=== PATIENT | female | born 1995 | race American Indian/Alaskan Native ===

== ENCOUNTER 2019-05-28 21:46 | Emergency (ER) | payer OTHER ==
[2019-05-29] MEDS ORDERED: MORPHINE 2 MG/1 ML INJ IV ONE (00:59)
[2019-05-29] MEDS ORDERED: ACETAMINOPHEN 500 MG TAB PO ONE (01:00)
[2019-05-29 01:29] LABS: Basophils % (Auto) 0.9 % (0.0-1.8); Eosinophils # (Auto) 0.1 K/mm3 (0.0-0.4); Eosinophils % (Auto) 1.8 % (0.0-4.3); Hemoglobin 12.1 gm/dl (10.1-14.3); Lymphocytes # (Auto) 1.7 K/mm3 (1.2-5.4); Lymphocytes % (Auto) 42.1 % (13.4-35.0); Mean Corpuscular HGB Conc 35 % (30-34); Mean Corpuscular Volume 84 fl (79-97); Monocytes # (Auto) 0.4 K/mm3 (0.0-0.8); Platelet Count 248 K/mm3 (140-440); Red Blood Count 4.17 M/mm3 (3.65-5.03); Red Cell Distribution Width 12.4 % (13.2-15.2)
[2019-05-29 02:06] LABS: Alanine Aminotransferase 19 units/L (7-56); Albumin 4.6 g/dL (3.9-5); BUN/Creatinine Ratio 22; Blood Urea Nitrogen 13 mg/dL (7-17); Calcium 9.5 mg/dL (8.4-10.2); Hemolysis Index 2
--- NOTE | 2019-05-29 03:00 | Cat Scan Report ---
CT ABDOMEN AND PELVIS WITH CONTRAST HISTORY: RLQ abdominal pain. COMPARISON: None. TECHNIQUE: CT images of the abdomen and pelvis were obtained following administration of intravenous contrast. All CT scans at this location are performed using CT dose reduction for ALARA by means of automated exposure control. CONTRAST: 100 ml of intravenous contrast administered. FINDINGS: Lungs/bones: Lung bases are clear. No acute osseous abnormality identified. Abdomen/pelvis: There is mild periportal edema and hepatomegaly. The liver otherwise appears unremar kable except for a small area of fatty infiltration near the ligamentum. The spleen, pancreas, adrena ls, kidneys, and proximal GI tract appear unremarkable. Urinary bladder is distended with no wall thickening or mass identified. There is small amount of end ometrial fluid and multiple bilateral ovarian follicles. Trace pelvic free fluid is present which may be physiologic in a woman of this age. No acute colonic abnormality identified. The appendix is norm al IMPRESSION: 1. No acute abnormality identified 2. Endometrial fluid and bilateral ovarian follicles as well as small volume pelvic free fluid, likel y physiologic in a woman of this age. Signer Name: Kris Harris MD Signed: 05/29/2019 2:55 AM Workstation Name: [id number]
[2019-05-29 03:24] LABS: Bacteria,Urine 2+ /HPF (Negative); Bilirubin,Urine NEG (Negative); Blood,Urine SM (Negative); Color,Urine Yellow (Yellow); Mucus,Urine 3+ /HPF; Protein,Urine <15 mg/dL mg/dL (Negative)
--- NOTE | 2019-05-29 03:31 | Emergency Department Report ---
ED Abdominal Pain HPI - General Chief Complaint: Abdominal Pain Stated Complaint: IRRITATION ON LOWER LEFT GUT Source: patient Mode of arrival: Ambulatory Limitations: No Limitations - History of Present Illness Initial Comments: Patient is a nulliparous 24-year-old -Cypriot female with no past medical history who presents to the ED with complaint of acute onset persistent right lower quadrant abdominal pain that radiates to the suprapubic area with a headache for the last 1 week was in the last 12 hours. Patient denies fever, chills, nausea, vomiting, diarrhea, dysuria, urinary frequency and urgency, vaginal discharge, low back pain, chest pain, shortness of breath, vaginal bleeding or sore throat and palpitation, nasal and sinus congestion, heavy lifting or traumatic injury. MD Complaint: abdominal pain, other (headache) -: Gradual, week(s) (1) Location: RLQ, suprapubic Radiation: none Migration to: no migration Severity: moderate Severity scale (0 -10): 4 Quality: cramping, aching, sharp Consistency: intermittent Improves With: nothing Worsens With: movement Associated Symptoms: denies other symptoms. denies: nausea, vomiting, diarrhea, fever, chills, dysuria, hematemesis, hematochezia, melena, hematuria, anorexia, syncope, other - Related Data LMP Date: 04/18/19 Previous Rx's Medication Instructions Recorded Last Taken Type Butalb/Acetamin/Caff 50-325-40 1 tab PO Q6HR PRN #12 tab 05/29/19 Unknown Rx [Fioricet 50-325-40] Cyclobenzaprine [Flexeril] 10 mg PO Q8H PRN #12 tablet 05/29/19 Unknown Rx Naproxen [Naproxen DR] 375 mg PO Q12H PRN #20 tablet.dr 05/29/19 Unknown Rx Allergies Allergy/AdvReac Type Severity Reaction Status Date / Time No Known Allergies Allergy Verified 05/28/19 21:55 ED Review of Systems ROS: Stated complaint: IRRITATION ON LOWER LEFT GUT Other details as noted in HPI Constitutional: denies: chills, fever Eyes: denies: eye pain, eye discharge, vision change ENT: denies: ear pain, throat pain Respiratory: denies: cough, shortness of breath, wheezing Cardiovascular: denies: chest pain, palpitations Endocrine: no symptoms reported Gastrointestinal: abdominal pain. denies: nausea, diarrhea, hematochezia Genitourinary: denies: urgency, dysuria, discharge Musculoskeletal: denies: back pain, joint swelling, arthralgia Skin: denies: rash, lesions Neurological: denies: headache, weakness, paresthesias Psychiatric: denies: anxiety, depression Hematological/Lymphatic: denies: easy bleeding, easy bruising ED Past Medical Hx - Past Medical History Previous Medical History?: Yes Hx Asthma: Yes (as child) - Surgical History Past Surgical History?: No - Social History Smoking Status: Never Smoker Substance Use Type: None - Medications Home Medications: Home Medications Medication Instructions Recorded Confirmed Last Taken Type Butalb/Acetamin/Caff 50-325-40 1 tab PO Q6HR PRN #12 tab 05/29/19 Unknown Rx [Fioricet 50-325-40] Cyclobenzaprine [Flexeril] 10 mg PO Q8H PRN #12 tablet 05/29/19 Unknown Rx Naproxen [Naproxen DR] 375 mg PO Q12H PRN #20 tablet.dr 05/29/19 Unknown Rx ED Physical Exam - General Limitations: No Limitations General appearance: alert, in no apparent distress - Head Head exam: Present: atraumatic, normocephalic, normal inspection - Eye Eye exam: Present: normal appearance, PERRL, EOMI Pupils: Present: normal accommodation - ENT ENT exam: Present: normal exam, normal orophraynx, mucous membranes moist, TM's normal bilaterally, normal external ear exam - Neck Neck exam: Present: normal inspection, full ROM - Respiratory Respiratory exam: Present: normal lung sounds bilaterally. Absent: respiratory distress, wheezes, rales, rhonchi, chest wall tenderness, accessory muscle use, decreased breath sounds - Cardiovascular Cardiovascular Exam: Present: regular rate, normal rhythm, normal heart sounds. Absent: systolic murmur, diastolic murmur, rubs, gallop - GI/Abdominal GI/Abdominal exam: Present: soft, tenderness (Palpable mild RLQ tenderness), normal bowel sounds. Absent: guarding, rebound, hyperactive bowel sounds, organomegaly - Bi-manual exam: Present: other (pelvic exam deferred) - Extremities Exam Extremities exam: Present: normal inspection, full ROM, normal capillary refill - Back Exam Back exam: Present: normal inspection, full ROM. Absent: tenderness, CVA tenderness (L), muscle spasm, paraspinal tenderness, vertebral tenderness - Neurological Exam Neurological exam: Present: alert, oriented X3, CN II-XII intact, normal gait, reflexes normal - Psychiatric Psychiatric exam: Present: normal affect, normal mood - Skin Skin exam: Present: warm, dry, intact, normal color. Absent: rash ED Course Vital Signs 05/28/19 05/29/19 21:51 02:45 Temperature 98.8 F Pulse Rate 72 Respiratory 18 20 Rate Blood Pressure 133/89 O2 Sat by Pulse 100 Oximetry ED Medical Decision Making - Lab Data Result diagrams: 05/29/19 01:10 05/29/19 01:10 - Radiology Data Radiology results: report reviewed, image reviewed Findings [facility] [address] [place] [address] Cat Scan Report Signed Patient: LEIDY MARTINEZ MR#: [id number] : 1995 Acct:[id number] Age/Sex: 24 / F ADM Date: 05/28/19 Loc: ED Attending Dr: Ordering Physician: LASHON ROSARIO Date of Service: 05/29/19 Procedure(s): CT abdomen pelvis w con Accession Number(s): [id number] cc: LASHON ROSARIO CT ABDOMEN AND PELVIS WITH CONTRAST HISTORY: RLQ abdominal pain. COMPARISON: None. TECHNIQUE: CT images of the abdomen and pelvis were obtained following administration of intravenous contrast. All CT scans at this location are performed using CT dose reduction for ALARA by means of automated exposure control. CONTRAST: 100 ml of intravenous contrast administered. FINDINGS: Lungs/bones: Lung bases are clear. No acute osseous abnormality identified. Abdomen/pelvis: There is mild periportal edema and hepatomegaly. The liver otherwise appears unremarkable except for a small area of fatty infiltration near the ligamentum. The spleen, pancreas, adrenals, kidneys, and proximal GI tract appear unremarkable. Urinary bladder is distended with no wall thickening or mass identified. There is small amount of endometrial fluid and multiple bilateral ovarian follicles. Trace pelvic free fluid is present which may be physiologic in a woman of this age. No acute colonic abnormality id entified. The appendix is normal IMPRESSION: 1. No acute abnormality identified 2. Endometrial fluid and bilateral ovarian follicles as well as small volume pelvic free fluid, likely physiologic in a woman of this age. Signer Name: Kris Harris MD Signed: 05/29/2019 2:55 AM Workstation Name: [id number] Transcribed By: VIVIEN Dictated By: Kris Harris MD Electronically Authenticated By: Kris Harris MD Signed Date/Time: 05/29/19254 DD/ 1 TD/TT: - Medical Decision Making This is a 24-year-old nulliparous female who presented to the ED with complaint of acute onset persistent right lower quadrant abdominal pain, with headache for the last 1 week, worse in the last 12 hours. In the ED, patient is alert and oriented 3 and is in distress. Patient was treated for pain in the ED and lab test results were reviewed and are all unremarkable. Abdomen pelvis CT scan with contrast shows no acute abnormalities in the abdomen and pelvis areas. Patient was treated for pain in the ED and on reevaluation, patient's pain is well controlled with medications. Patient was discharged home on pain medications and advised follow-up with her primary care physician in 7-10 days for reevaluation or return to the ED immediately if symptoms get worse. - Differential Diagnosis UTI; Appendicitis; Ovarian cysts; Constipation; muscle strain; Critical care attestation.: If time is entered above; I have spent that time in minutes in the direct care of this critically ill patient, excluding procedure time. ED Disposition Clinical Impression: Abdominal pain Qualifiers: Abdominal location: lower abdomen, unspecified Qualified Code(s): R10.30 - Lower abdominal pain, unspecified Ovarian cyst Qualifiers: Laterality: right Qualified Code(s): N83.201 - Unspecified ovarian cyst, right side Tension type headache Qualifiers: Headache chronicity pattern: unspecified pattern Intractability: not intractable Qualified Code(s): G44.209 - Tension-type headache, unspecified, not intractable Disposition: DC-01 TO HOME OR SELFCARE Is pt being admited?: No Does the pt Need Aspirin: No Condition: Stable Instructions: Abdominal Pain (ED), Ovarian Cyst (ED), Acute Headache (ED) Additional Instructions: Take medication with food, drink plenty of fluids and follow-up with her primary care physician in 7-10 days for reevaluation. Return to the ED immediately if symptoms get worse. Prescriptions: Butalb/Acetamin/Caff 50-325-40 [Fioricet 50-325-40] 1 tab PO Q6HR PRN #12 tab PRN Reason: Headache Cyclobenzaprine [Flexeril] 10 mg PO Q8H PRN #12 tablet PRN Reason: Muscle Spasm Naproxen [Naproxen DR] 375 mg PO Q12H PRN #20 tablet.dr PRN Reason: Pain , Severe (7-10) Referrals: [facility] MD [Staff Physician] - 7-10 days Forms: Work/School Release Form(ED) Time of Disposition: 03:40 Print Language: GUYANESE
[2019-05-29 07:01] VITALS: BP 118/67
== END 2019-05-29 06:45 | disposition home or self-care (01) ==
LOC: ED 21:46
DX: N83.201 Unspecified ovarian cyst, right side (principal); G44.209 Tension-type headache, unspecified, not intractable; J45.909 Unspecified asthma, uncomplicated; Z79.899 Other long term (current) drug therapy
CPT/HCPCS: 36415; 74177; 80053; 81001; 83690; 84703; 85025; 96374; 99284; J2270; Q9967